=== PATIENT | male | born 1970 | race Caucasian/White ===

== ENCOUNTER → 2017-02-25 | Outpatient (CLI) | payer OTHER ==
--- NOTE | 2017-02-25 19:34 | MR ---
EXAMINATION TYPE: MR shoulder LT wo con DATE OF EXAM: 02/25/2017 COMPARISON: NONE HISTORY: Left Shoulder and Left Arm Pain TECHNIQUE: Multiplanar, multisequence imaging of the left shoulder is performed without contrast. FINDINGS: Rotator Cuff: Rotator cuff tendons are intact with no evidence of tear. Acromioclavicular Joint: Hypertrophic change of the acromioclavicular joint but no evidence of imping ement. Glenohumeral Joint: Joint space preserved. No sizable joint effusion glenohumeral ligaments intact. Labrum: The labrum appears grossly intact given limitation of non-arthrogram study. Biceps Tendon: The long head of biceps is in normal location within bicipital groove. Bone marrow signal: No focal abnormal marrow signal is appreciated. IMPRESSION: Bowel AC joint arthropathy with no evidence of impingement or rotator cuff tear.
== END | disposition home or self-care (01) ==
LOC: RADMRIMAIN 17:54
PROVIDERS: ATTEND Neurological Surgery
DX: M12.812 Other specific arthropathies, not elsewhere classified, left shoulder (principal); M50.120 Mid-cervical disc disorder, unspecified level

== ENCOUNTER 2017-02-28 13:51 | Emergency (ER) | payer OTHER ==
[2017-02-28] MEDS ORDERED: SODIUM CHLORIDE 0.9% 500 ML IV STA (14:55)
[2017-02-28] MEDS ORDERED: RX INFO: IV CONTRAST WAS GIVEN 1 EACH MISC MISCELLANE PRN (14:57)
--- NOTE | 2017-02-28 15:00 | ED ---
General Adult HPI - General Chief complaint: Urogenital Stated complaint: Abd Pain Time Seen by Provider: 02/28/17 14:46 Source: patient, RN notes reviewed Mode of arrival: ambulatory Limitations: no limitations - History of Present Illness Initial comments: 46-year-old male presenting with two-week history of right flank pain and urinary frequency. Denies any trauma or overuse injury. Patient reports that his pain which begins in the right flank and radiates to the groin has been increasing over the past 2 weeks. Pain is constant in nature. Started out mild and has been becoming more severe. Patient reports increased sugar frequency and urgency. Denies any dysuria. No history of urinary tract infections, no history of kidney stones. Patient has past medical history of hypertension. Denies nausea vomiting or diarrhea. States he may be constipated. - Related Data Home Medications Medication Instructions Recorded Confirmed ALPRAZolam [Xanax] 1 mg PO TID PRN 11/22/15 02/28/17 Fluticasone Nasal [place] [Flonase 1 spray EA NOSTRIL DAILY PRN 11/22/15 02/28/17 Nasal [place]] Levothyroxine Sodium [Synthroid] 100 mcg PO DAILY 11/22/15 02/28/17 Loratadine [Claritin] 10 mg PO DAILY PRN 11/22/15 02/28/17 amLODIPine [Norvasc] 10 mg PO DAILY 11/22/15 02/28/17 oxyCODONE-APAP 10-325MG [Percocet 1 tab PO Q4H PRN 11/22/15 02/28/17 10-325 mg] Beclomethasone Dipropionate [Qvar 1 - 2 puff INHALATION RT-BID PRN 11/30/15 80 mcg/puff] Ciprofloxacin HCl [Ciloxan 0.3%] 2 drops RIGHT EYE BID 11/30/15 02/28/17 Multivitamins, Thera [Multivitamin] 1 tab PO DAILY 04/02/16 02/28/17 Ciprofloxacin Ophth Soln [Ciloxan 1 drops LEFT EYE BID 02/28/17 02/28/17 0.3% Ophth Soln] Allergies Allergy/AdvReac Type Severity Reaction Status Date / Time atenolol Allergy dry mouth, Verified 02/28/17 14:57 frequent urination benazepril Allergy Nausea & Verified 02/28/17 14:57 Vomiting & Diarrhea doxycycline Allergy Rash/Hives Verified 02/28/17 14:57 losartan potassium Allergy Nausea & Verified 02/28/17 14:57 [From Cozaar] Vomiting & Diarrhea hydralazine AdvReac "MAY HAVE Verified 02/28/17 14:57 CAUSEA LUPUS" Review of Systems ROS Statement: Those systems with pertinent positive or pertinent negative responses have been documented in the HPI. ROS Other: All systems not noted in ROS Statement are negative. Past Medical History Past Medical History: Chest Pain / Angina, Hypertension, Sleep Apnea/CPAP/BIPAP , Thyroid Disorder Additional Past Medical History / Comment(s): pain L4-L5, States is not taking nitrogylcerin tabs at this time. States does not get chest pain anymore. History of Any Multi-Drug Resistant Organisms: None Reported Past Surgical History: Cholecystectomy, Hernia Repair Additional Past Surgical History / Comment(s): laminectomy. 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 Past Anesthesia/Blood Transfusion Reactions: Postoperative Nausea & Vomiting ( PONV) Past Psychological History: Anxiety Smoking Status: Current every day smoker Past Alcohol Use History: Occasional Past Drug Use History: Marijuana - Past Family History Brother(s) Family Medical History: Memory Impairment Mother Family Medical History: Deep Vein Thrombosis (DVT) General Exam Limitations: no limitations General appearance: alert, in no apparent distress Head exam: Present: atraumatic, normocephalic Eye exam: Present: normal appearance, PERRL ENT exam: Present: normal exam, mucous membranes moist Neck exam: Present: normal inspection. Absent: tenderness, meningismus Respiratory exam: Present: normal lung sounds bilaterally. Absent: respiratory distress Cardiovascular Exam: Present: regular rate, normal rhythm GI/Abdominal exam: Present: soft, tenderness (Mild tenderness to palpation in the right lower quadrant). Absent: distended exam: Present: normal inspection, other (Right orchiectomy). Absent: scrotal swelling Extremities exam: Present: normal inspection, full ROM, normal capillary refill Back exam: Present: normal inspection, full ROM, CVA tenderness (R) Neurological exam: Present: alert, oriented X3 Psychiatric exam: Present: normal affect, normal mood Skin exam: Present: warm, dry. Absent: cyanosis, diaphoretic Course Vital Signs 02/28/17 14:02 Temperature 98.9 F Pulse Rate 89 Respiratory 18 Rate Blood Pressure 134/85 O2 Sat by Pulse 96 Oximetry Medical Decision Making - Medical Decision Making 46-year-old man presenting with chief complaint of urinary frequency and urgency as well as right flank pain. Patient denies any injury. Denies back pain. No changes to his bowels. No penile or scrotal pain. Patient is well- appearing on examination vital signs are stable. There is some tenderness and right flank. Laboratory studies including CBC, CMP and urinalysis are obtained. Urinalysis does show signs of dehydration with 3+ ketones. There is no other abnormality and laboratory studies. When no elevated white blood cell count. CT is obtained and shows no kidney stones or signs of infection. No acute process seen on CT. There is stress reaction and the lamina of L5. Uncertain if this is contributing to the patient's symptoms. The patient does have a primary care physician who is able to follow up with. Diagnosis right flank pain, urinary frequency. uncertain etiology - Lab Data Result diagrams: 02/28/17 15:15 02/28/17 15:15 Lab Results 02/28/17 02/28/17 02/28/17 Range/Units 15:15 15:15 15:15 WBC 8.3 (3.8-10.6) k/uL RBC 5.14 (4.30-5.90) m/uL Hgb 17.1 (13.0-17.5) gm/dL Hct 47.0 (39.0-53.0) % MCV 91.4 (80.0-100.0) fL MCH 33.3 (25.0-35.0) pg MCHC 36.4 (31.0-37.0) g/dL RDW 13.0 (11.5-15.5) % Plt Count 199 (150-450) k/uL Neutrophils % 76 % Lymphocytes % 15 % Monocytes % 6 % Eosinophils % 1 % Basophils % 1 % Neutrophils # 6.3 (1.3-7.7) k/uL Lymphocytes # 1.3 (1.0-4.8) k/uL Monocytes # 0.5 (0-1.0) k/uL Eosinophils # 0.1 (0-0.7) k/uL Basophils # 0.0 (0-0.2) k/uL Sodium 142 (137-145) mmol/L Potassium 4.0 (3.5-5.1) mmol/L Chloride 105 (98-107) mmol/L Carbon Dioxide 22 (22-30) mmol/L Anion Gap 15 mmol/L BUN 13 (9-20) mg/dL Creatinine 1.00 (0.66-1.25) mg/dL Est GFR (MDRD) Af Amer >60 (>60 ml/min/1.73 sqM) Est GFR (MDRD) Non-Af >60 (>60 ml/min/1.73 sqM) Glucose 114 H (74-99) mg/dL Plasma Lactic Acid Zane (0.7-2.0) mmol/L Calcium 9.7 (8.4-10.2) mg/dL Total Bilirubin 0.9 (0.2-1.3) mg/dL AST 40 (17-59) U/L ALT 68 (21-72) U/L Alkaline Phosphatase 68 (38-126) U/L Total Protein 8.0 (6.3-8.2) g/dL Albumin 5.0 (3.5-5.0) g/dL Urine Color Yellow Urine Appearance Clear (Clear) Urine pH 5.5 (5.0-8.0) Ur Specific [place] 1.019 (1.001-1.035) Urine Protein Negative (Negative) Urine Glucose (UA) Negative (Negative) Urine Ketones 3+ H (Negative) Urine Blood Negative (Negative) Urine Nitrite Negative (Negative) Urine Bilirubin Negative (Negative) Urine Urobilinogen <2.0 (<2.0) mg/dL Ur Leukocyte Esterase Negative (Negative) 02/28/17 Range/Units 15:15 WBC (3.8-10.6) k/uL RBC (4.30-5.90) m/uL Hgb (13.0-17.5) gm/dL Hct (39.0-53.0) % MCV (80.0-100.0) fL MCH (25.0-35.0) pg MCHC (31.0-37.0) g/dL RDW (11.5-15.5) % Plt Count (150-450) k/uL Neutrophils % % Lymphocytes % % Monocytes % % Eosinophils % % Basophils % % Neutrophils # (1.3-7.7) k/uL Lymphocytes # (1.0-4.8) k/uL Monocytes # (0-1.0) k/uL Eosinophils # (0-0.7) k/uL Basophils # (0-0.2) k/uL Sodium (137-145) mmol/L Potassium (3.5-5.1) mmol/L Chloride (98-107) mmol/L Carbon Dioxide (22-30) mmol/L Anion Gap mmol/L BUN (9-20) mg/dL Creatinine (0.66-1.25) mg/dL Est GFR (MDRD) Af Amer (>60 ml/min/1.73 sqM) Est GFR (MDRD) Non-Af (>60 ml/min/1.73 sqM) Glucose (74-99) mg/dL Plasma Lactic Acid Zane 0.8 (0.7-2.0) mmol/L Calcium (8.4-10.2) mg/dL Total Bilirubin (0.2-1.3) mg/dL AST (17-59) U/L ALT (21-72) U/L Alkaline Phosphatase (38-126) U/L Total Protein (6.3-8.2) g/dL Albumin (3.5-5.0) g/dL Urine Color Urine Appearance (Clear) Urine pH (5.0-8.0) Ur Specific [place] (1.001-1.035) Urine Protein (Negative) Urine Glucose (UA) (Negative) Urine Ketones (Negative) Urine Blood (Negative) Urine Nitrite (Negative) Urine Bilirubin (Negative) Urine Urobilinogen (<2.0) mg/dL Ur Leukocyte Esterase (Negative) Disposition Clinical Impression: Urinary frequency, Flank pain Disposition: HOME SELF-CARE Condition: Good Instructions: Dysuria (ED), Flank Pain (ED) Additional Instructions: Return to the emergency department with worsening symptoms. Referrals: Sky Wilde MD [Primary Care Provider] - 1-2 days Time of Disposition: 16:13
[2017-02-28 15:31] LABS: Appearance,Urine Clear (Clear); Basophils % (A) 1 %; Bilirubin,Urine Negative (Negative); CH 33.1; CHCM 36.4; Eosinophils # (A) 0.1 k/uL (0-0.7); Eosinophils % (A) 1 %; Glucose,Urine (UA) Negative (Negative); HDW 2.93; HGB 17.1 gm/dL (13.0-17.5); Ketones,Urine 3+ (Negative); Leukocyte Esterase,Urine Negative (Negative); Luc # (Auto) 0.13; Luc % (Auto) 2; Lymphocytes # (A) 1.3 k/uL (1.0-4.8); Lymphocytes % (A) 15 %; MCH 33.3 pg (25.0-35.0); MCHC 36.4 g/dL (31.0-37.0); MCV 91.4 fL (80.0-100.0); Mean Platelet Volume 6.8; Monocytes # (A) 0.5 k/uL (0-1.0); Monocytes % (A) 6 %; Neutrophils # (A) 6.3 k/uL (1.3-7.7); Neutrophils % (A) 76 %; Nitrite,Urine Negative (Negative); PH, Urine 5.5 (5.0-8.0); Protein,Urine Negative (Negative); RBC 5.14 m/uL (4.30-5.90); Specific Gravity,Urine 1.019 (1.001-1.035); UA Billing (MACRO vs. MICRO) CHEM; Urobilinogen,Urine <2.0 mg/dL (<2.0); WBC 8.3 k/uL (3.8-10.6); WBC (Perox) 8.17
[2017-02-28 15:41] LABS: ALT 68 U/L (21-72); AST 40 U/L (17-59); Alkaline Phosphatase 68 U/L (38-126); Anion Gap 15 mmol/L; Blood Urea Nitrogen 13 mg/dL (9-20); Calcium 9.7 mg/dL (8.4-10.2); Carbon Dioxide 22 mmol/L (22-30); Chloride 105 mmol/L (98-107); Glucose 114 mg/dL (74-99); Non-African American GFR(MDRD) >60 (>60 ml/min/1.73 sqM); Sodium 142 mmol/L (137-145); Total Bilirubin 0.9 mg/dL (0.2-1.3)
[2017-02-28] MEDS ORDERED: SODIUM CHLORIDE 0.9% 1,000 ML IV ONE (15:57)
--- NOTE | 2017-02-28 15:59 | CT ---
EXAMINATION TYPE: CT abdomen pelvis w con DATE OF EXAM: 02/28/2017 REFERENCE: NONE HISTORY: Pain HISTORY: Bilateral flank pain with increased frequency of urination REFERENCE: NONE CT DLP: 1530 mGy Automated exposure control for dose reduction was used. TECHNIQUE: Helical acquisition through the abdomen and pelvis was obtained following the oral ingesti on of without Oral Contrast and following intravenous administration of 100 mL of Omnipaque 300. The data was reformatted in axial, coronal and sagittal projections. FINDINGS: Visualized portions of the lungs are clear. There is no pleural or pericardial fluid. The heart is upper limits of normal in size. There is a small hiatal hernia. Within the abdomen, the gallbladder is been removed. The liver is normal in size but fatty infiltrate d. The spleen is upper limits of normal in size at 13 cm. Both adrenal glands are normal. Both kidneys demonstrate function. There is no evidence of nephrolithiasis. No other renal abnormalit y is seen. The pancreas is normal. There is no evidence of significant retroperitoneal, iliac or inguinal adenopathy. The bladder is unremarkable. There is no significant diverticular change and I do not see radiographic evidence of diverticulitis. The appendix is normal. Small bowel loops are normal. There is no evidence of free fluid or free air. There is sclerosis in the lamina at L5, likely representing a stress reaction. There is no spondyloly sis or spondylolisthesis. IMPRESSION: 1. NO EVIDENCE OF NEPHROLITHIASIS OR HYDRONEPHROSIS. 2. NO ACUTE INFLAMMATORY ABNORMALITY. 3. STRESS REACTION IN THE LAMINA OF L5. 4. SMALL HIATAL HERNIA.
[2017-02-28 16:24] VITALS: BP 137/80; PULSE 79; RESP 16; TEMP 97.5
== END 2017-02-28 16:24 | disposition home or self-care (01) ==
LOC: EC 13:51
DX: R35.0 Frequency of micturition (principal); R39.15 Urgency of urination; R10.9 Unspecified abdominal pain; E86.0 Dehydration; I10 Essential (primary) hypertension; E07.9 Disorder of thyroid, unspecified; G47.30 Sleep apnea, unspecified; Z99.89 Dependence on other enabling machines and devices; Z90.49 Acquired absence of other specified parts of digestive tract; Z90.79 Acquired absence of other genital organ(s); F17.200 Nicotine dependence, unspecified, uncomplicated; Z79.899 Other long term (current) drug therapy; Z88.1 Allergy status to other antibiotic agents; Z88.8 Allergy status to other drugs, medicaments and biological substances
CPT/HCPCS: 36415; 80053; 83605; 85025; 81003; 87086; 74177; 99284; 96360; Q9967

== ENCOUNTER → 2017-08-14 | Outpatient (CLI) | payer OTHER ==
--- NOTE | 2017-08-14 22:54 | MR ---
EXAMINATION TYPE: MR knee RT wo con DATE OF EXAM: 08/14/2017 COMPARISON: Prior right knee MRI October 20, 2014. HISTORY: Right Knee pain, Swelling, Locking, x1 year, per patient. Meniscal tear per order. TECHNIQUE: Multiplanar, multisequence images of the knee is performed without IV contrast. FINDINGS: MEDIAL MENISCUS: Anterior horn is intact without tear. Some fraying and increased linear signal poste rior aspect posterior horn of medial meniscus remains present. LATERAL MENISCUS: Anterior and posterior horns are intact without tear. CRUCIATE LIGAMENTS: The anterior and posterior cruciate ligaments are intact and unremarkable. COLLATERAL LIGAMENTS: The medial collateral ligament and lateral collateral ligament complex are inta ct and unremarkable. EXTENSOR MECHANISM: Visualized quadriceps and patellar tendons are intact. EFFUSION: No significant suprapatellar joint effusion. POPLITEAL CYST: No popliteal/parker cyst. TRICOMPARTMENT SPACES: Tricompartment joint spaces are fairly well-maintained. No significant spurrin g is seen. CARTILAGE: Tricompartment articular cartilage is preserved. BONE MARROW SIGNAL: No focal abnormal marrow signal is appreciated. OTHER: No additional significant abnormality is appreciated. IMPRESSION: Fraying intrasubstance tear posterior horn medial meniscus otherwise unremarkable study.
== END | disposition home or self-care (01) ==
LOC: RADMRIMAIN 18:41
PROVIDERS: ATTEND Orthopaedic Surgery
DX: S83.241A Other tear of medial meniscus, current injury, right knee, initial encounter (principal)

== ENCOUNTER → 2017-09-04 | Outpatient (CLI) | payer OTHER ==
[2017-09-04 16:22] LABS: Basophils % (A) 1 %; Eosinophils % (A) 0 %; HCT 48.5 % (39.0-53.0); HGB 17.4 gm/dL (13.0-17.5); Hyperchromasia Slight; Lymphocytes # (A) 1.3 k/uL (1.0-4.8); Lymphocytes % (A) 14 %; MCH 31.1 pg (25.0-35.0); MCHC 35.8 g/dL (31.0-37.0); MCV 86.9 fL (80.0-100.0); Mean Platelet Volume 6.7; Monocytes # (A) 0.5 k/uL (0-1.0); Monocytes % (A) 6 %; Neutrophils # (A) 6.9 k/uL (1.3-7.7); Neutrophils % (A) 78 %; Platelet Count 240 k/uL (150-450); RBC 5.57 m/uL (4.30-5.90); RDW 12.8 % (11.5-15.5); WBC 8.8 k/uL (3.8-10.6)
[2017-09-04 16:40] LABS: ALT 70 U/L (21-72); AST 42 U/L (17-59); Albumin 5.1 g/dL (3.5-5.0); Alkaline Phosphatase 69 U/L (38-126); Anion Gap 15 mmol/L; Blood Urea Nitrogen 15 mg/dL (9-20); Calcium 10.4 mg/dL (8.4-10.2); Carbon Dioxide 28 mmol/L (22-30); Chloride 103 mmol/L (98-107); Cholesterol 181 mg/dL (<200); Glucose 145 mg/dL (74-99); HDL Cholesterol 49 mg/dL (40-60); LDL Cholesterol,Calculated 99 mg/dL (0-99); Potassium 4.3 mmol/L (3.5-5.1); Sodium 146 mmol/L (137-145); Total Bilirubin 0.7 mg/dL (0.2-1.3); Total Protein 8.7 g/dL (6.3-8.2); Triglycerides 164 mg/dL (<150)
[2017-09-04 16:53] LABS: T4, Free (Free Thyroxine) 1.19 ng/dL (0.78-2.19)
[2017-09-05 02:37] LABS: Hemoglobin A1C 5.7 % (4.0-6.0)
[2017-09-05 11:15] LABS: Anti-Endomysial IgA Antibody <1:10 Titer (<1:10)
[2017-09-05 13:38] LABS: Glucose-6-Phosphate Dehydrogen 11.2 U/g Hgb (7.0-20.5)
== END | disposition home or self-care (01) ==
LOC: LABWHC1 15:27
PROVIDERS: ATTEND Family Medicine
DX: E55.9 Vitamin D deficiency, unspecified (principal); E78.5 Hyperlipidemia, unspecified; R53.81 Other malaise; L13.0 Dermatitis herpetiformis; K12.0 Recurrent oral aphthae; L71.8 Other rosacea; Z13.220 Encounter for screening for lipoid disorders
CPT/HCPCS: 36415; 80053; 80061; 82306; 82955; 83036; 83516; 84439; 84443; 85025; 86255

== ENCOUNTER 2017-11-21 12:29 | Day surgery (SDC) | payer OTHER ==
[~2017-11-21 12:29] MED LIST: LACTATED RINGERS 1,000 ML IV SCH; LIDOCAINE 1% 20 ML VIAL (10MG/ML) FOR IV START INTRADERMA PRN
[2017-11-21 12:58] VITALS: TEMP 98.3
[2017-11-21] MEDS ORDERED: LIDOCAINE 1% 20 ML VIAL (10MG/ML) FOR IV START INTRADERMA ONE (13:10)
[2017-11-21] MEDS ORDERED: LIDOCAINE 1% INJ 10MG/ML (20 ML MDV) ONE (13:38)
[2017-11-21] MEDS ORDERED: PROPOFOL 10 MG/ML 20 ML VIAL IV ONE (13:38)
--- NOTE | 2017-11-21 14:11 | P.PCN ---
Date of Procedure: 11/21/17 Procedure(s) Performed: Procedure: 1. Esophagogastroduodenoscopy and biopsy. 2. Colonoscopy and biopsy. Preoperative diagnosis: Gastroesophageal reflux disease, change in bowel habits and blood in stools. Postoperative diagnosis: 1. Small sliding hiatal hernia with no obvious esophagitis or complaints reflux disease. 2. Mild antral gastritis and minimal duodenitis. 3. Low-grade internal hemorrhoids without bleeding at the time of this exam. 4. Biopsies obtained from the duodenum, antrum, esophagus and right colon. Preparation: HalfLytely prep. Sedation: Was provided by anesthesia. Brief clinical history: The patient is a 47-year-old male who was scheduled for this evaluation because of chronic reflux symptoms for which he takes Tums and intermittent diarrhea as well as finding of blood in his stools. No other alarm symptoms. Procedure: With the patient on his left lateral decubitus position and after informed consent and adequate sedation, I passed the Olympus-GIF 160 video upper endoscope through the cricopharyngeus down the esophagus. GE junction was around 39 cm from the incisors and there was a small sliding hiatal hernia but no obvious esophagitis or complicated reflux disease. The endoscope was then passed into the stomach which was insufflated with air and inspected in detail including the retroflex view in the cardia. There was some mottling and erythema in the antrum but no ulcers or erosions. Pyloric channel, duodenal bulb, post bulbar area and descending duodenum showed minimal erythema. I obtained biopsies from the duodenum, antrum and esophagus then the endoscope was withdrawn and I proceeded with the colonoscopy. Perianal area did not show any fissures or fistulas. There were no masses felt on digital rectal examination. The Olympus CFQ 160L video colonoscope was then inserted in the rectum in the usual fashion and advanced to the cecum. The mucosa appeared healthy. No polyps or tumors were seen or any obvious diverticular disease. Low-grade internal hemorrhoids were noted with no evidence of bleeding. I obtained biopsies from the right colon because of the diarrhea before the endoscope was withdrawn. The patient tolerated the procedure well. Plan: The patient was reassured. Will await biopsy results. Discussed dietary measures and local care for hemorrhoids. He will follow-up in the office as planned and we would keep you updated on his progress.
[2017-11-21 14:13] VITALS: RESP 18
[2017-11-21 14:42] VITALS: BP 143/91; PULSE 66
--- NOTE | 2017-11-26 13:41 | CDI ---
Outpatient Documentation Clarification Form Date: 11/26/17 CDS/Fiberglass Insulation Installer Name: Alejandra Rizzo Phone: If any questions, call Miryam [place] Lithographic Proofer Apprentice at [phone] Patient Name: Cleveland Bardales Admit Date: 11/21/17 Discharge Date: 11/21/17 ATTENTION: The [facility] Coding Staff appreciate your assistance in clarifying documentation. Please respond to the clarification below the line at the bottom and electronically sign. The [facility] Coding staff will review the response and follow-up if needed. Please note: Queries are made part of the Legal Health Record. If you have any questions, please contact the Lithographic Proofer Apprentice. Dear Dr. Rao, What is the cause of the blood in stool? Examples include due to internal hemorrhoids, gastritis, incidental finding, etc. Thank you for your kind consideration. Unknown MTDD
== END 2017-11-21 15:20 | disposition home or self-care (01) ==
LOC: ORWHC2ENDO 12:29
DX: K29.50 Unspecified chronic gastritis without bleeding (principal); K21.0 Gastro-esophageal reflux disease with esophagitis; K29.80 Duodenitis without bleeding; K44.9 Diaphragmatic hernia without obstruction or gangrene; K92.1 Melena; K64.8 Other hemorrhoids; G47.33 Obstructive sleep apnea (adult) (pediatric); I10 Essential (primary) hypertension; E07.9 Disorder of thyroid, unspecified; Z79.891 Long term (current) use of opiate analgesic; Z79.51 Long term (current) use of inhaled steroids; Z79.899 Other long term (current) drug therapy; Z79.890 Hormone replacement therapy; Z87.891 Personal history of nicotine dependence; Z88.1 Allergy status to other antibiotic agents; Z88.8 Allergy status to other drugs, medicaments and biological substances
CPT/HCPCS: 88305; 45380; 43239; J2001; J2704

== ENCOUNTER → 2019-12-23 | Outpatient (CLI) | payer MEDICARE, OTHER ==
--- NOTE | 2019-12-23 23:20 | CONS ---
CONSULTATION DATE OF SERVICE: 12/23/2019 This patient is a 49-year-old gentleman who has been evaluated in the sleep center for obstructive sleep apnea-hypopnea syndrome. Patient has been diagnosed with obstructive sleep apnea around 2011 in another institution. Since that time, he is on treatment with CPAP. I checked his CPAP unit. CPAP pressure is 9 cm of water. According to the patient, he is using equipment every night. Last night, he used it for 9 hours. Usual sleep schedule from 11 p.m. until 8 or 10 a.m. Sometimes he has problems with falling asleep, has TV in bedroom. He sleeps on the back position. He wakes up from sleep 3 times with 3 episodes of nocturia but he explained that his awakenings does not remember due to the breathing. He described it secondary to pain in the body. [place] Sleepiness Scale is 3. PAST MEDICAL HISTORY: Positive for hypertension, hypothyroidism, acid reflux, asthma. PAST SURGICAL HISTORY: Adenoidectomy, cholecystectomy, right knee arthroscopic surgery. MEDICATIONS: , Percocet, Xanax, amlodipine, Synthroid, ciprofloxacin, Pepcid. SOCIAL HISTORY: Positive for smoking in the past 1 pack for 25 years, quit 2 years ago. REVIEW OF SYSTEMS: Awakenings from sleep. PHYSICAL EXAMINATION: GENERAL: A gentleman without distress. VITAL SIGNS: BP 141/87, HR 86, RR 16, height 5 feet 8 inches, weight 180, body mass index 28.5, temperature 98.0, oxygen saturation on room air 97%. Neck is 17-1/2 inches in circumference. HEENT: PERRLA, EOMI, evaluation of oropharynx showed tongue protrudes midline. NECK: Supple, no JVD. Thyroid is not palpable. LUNGS: Clear to percussion and to auscultation. Good air exchange. No wheezing or rhonchi. HEART: S1, S2 regular. No murmurs, gallops, or rubs. ABDOMEN: Soft and nontender. Bowel sounds are present. No organomegaly appreciated. EXTREMITIES: No clubbing or cyanosis. FORGING ENGINEER: Awake, alert, and oriented X3. Cranial nerves 2 to 7 intact. There is no fasciculation or atrophy. noted. No focal deficits observed. IMPRESSION: 1. Obstructive sleep apnea-hypopnea syndrome since 2011. Patient is on treatment with CPAP. Continue to use CPAP equipment every night for the whole night, but still wakes up from sleep. 2. Overweight. 3. Hypertension. 4. Hypothyroidism. 5. Acid reflux. 6. History of asthma. 7. Status post right knee arthroscopic surgery. 8. Status post cholecystectomy. 9. Status post adenoidectomy. 10.Status post L4-L5 laminectomy. PLAN: 1. Patient will continue to use CPAP equipment every night for the whole night. 2. Watching weight. 3. Sleep hygiene with regular time in bed for at least 7-1/2 to 8 hours. 4. Prescription for new CPAP supplies. 5. Follow-up visit in 45 days to evaluate clinical response and treatment, compliance with treatment and to read apnea-hypopnea index from his new CPAP unit. I would use the same pressure for the CPAP machine as he has now 9 cm of water. Thank you very much for allowing me to participate in management of your patient. Sincerely, Bhavin Nelson MD, PhD, FAASM Diplomat of [place] [employer] [place] [employer] Building Inspector of [facility] [place] MMODL / HUSSAINN: [id number] /
== END | disposition home or self-care (01) ==
LOC: SLEEP 14:54
PROVIDERS: ATTEND Internal Medicine
DX: G47.33 Obstructive sleep apnea (adult) (pediatric) (principal); E66.3 Overweight; I10 Essential (primary) hypertension; E03.9 Hypothyroidism, unspecified; K21.9 Gastro-esophageal reflux disease without esophagitis; Z87.09 Personal history of other diseases of the respiratory system; Z99.89 Dependence on other enabling machines and devices; Z98.890 Other specified postprocedural states; Z90.49 Acquired absence of other specified parts of digestive tract; Z90.89 Acquired absence of other organs; Z68.28 Body mass index [BMI] 28.0-28.9, adult; Z87.891 Personal history of nicotine dependence; Z79.891 Long term (current) use of opiate analgesic; Z79.890 Hormone replacement therapy; Z79.2 Long term (current) use of antibiotics; Z79.899 Other long term (current) drug therapy
CPT/HCPCS: 99211

== ENCOUNTER → 2021-06-22 | Outpatient (CLI) | payer MEDICARE, OTHER ==
--- NOTE | 2021-06-22 21:07 | SFUN ---
SLEEP CENTER FOLLOW UP NOTE DATE OF SERVICE: 06/22/2021 50-year-old gentleman has been followed in Sleep Center for treatment of obstructive sleep apnea-hypopnea syndrome. Last time I saw him 1-1/2 year ago. He continues to use his CPAP equipment every night for the whole night. No snoring with the machine. [place] Sleepiness Scale today is 4. I checked his CPAP unit. Pressure is 9 cm of water. Usage is 30/30 nights and 24/30 nights for more than 4 hours, average 7.9 hours per night. Leak is 1 L/minute. Apnea- hypopnea index is 0.5 which is normal. The patient preferred to have high pressure in his machine. He thinks that pressure is sometimes not enough for him. He does not use any ramp. MEDICATIONS: Percocet, Xanax, ciprofloxacin eye drops, Prilosec. PHYSICAL EXAM: Patient in no distress. BP 165/97, HR 68, height 5 feet 7.5 inches, weight 187.8 pounds, temperature 97.3, oxygen saturation at room air 98%. Oropharynx: Short distance between soft palate. NECK: 17.5 inches in circumflex. Supple, no JVD. Thyroid is not palpable. LUNGS: Clear to percussion and to auscultation. Good air exchange. No wheezing or rhonchi. HEART: S1, S2 regular. No murmurs, gallops, or rubs. ABDOMEN: Soft and nontender. Bowel sounds are present. No organomegaly appreciated. EXTREMITIES: No clubbing or cyanosis. COOK ICE CREAM: Awake, alert, and oriented X3. Cranial nerves 2 to 7 intact. There is no fasciculation or atrophy. noted. No focal deficits observed. IMPRESSION: 1. Obstructive sleep apnea-hypopnea syndrome patient demonstrated close to 100% compliance with treatment benefitting from treatment. 2. Hypertension. 3. History of hypothyroidism. 4. Acid reflux. 5. History of asthma. 6. Status post right knee arthroscopic surgery. 7. Status post cholecystectomy. 8. Status post adenoidectomy. 9. Status post L4-L5 laminectomy. PLAN: 1. I increased the pressure in the machine on 1 cm of water to 10.6 cm. 2. Patient will continue to use PAP equipment every night for the whole night. 3. Sleep hygiene with regular time in bed for at least 7-1/2 to 8 hours. 4. Precautions related to driving. No driving if feeling sleepiness. 5. I will maintain all necessary prescription for PAP supplies including mask, tube, filters. 6. Watching weight. 7. Follow-up visit in 6 months or earlier if patient has any problems. Thank you very much for allowing me to participate in the management of your patient. Sincerely, Bhavin Nelson MD, PhD, FAASM Diplomat of [place] [employer] Sleep Medicine Board of [place] [employer] Technical Supervisor of [facility] [place] MMODL / HUSSAINN: [id number] /
== END ==
LOC: SLEEP 16:22
PROVIDERS: ATTEND Internal Medicine
DX: G47.33 Obstructive sleep apnea (adult) (pediatric) (principal); I10 Essential (primary) hypertension; K21.9 Gastro-esophageal reflux disease without esophagitis; J45.909 Unspecified asthma, uncomplicated; M96.1 Postlaminectomy syndrome, not elsewhere classified; Z98.890 Other specified postprocedural states; Z90.49 Acquired absence of other specified parts of digestive tract; Z90.09 Acquired absence of other part of head and neck; Z86.39 Personal history of other endocrine, nutritional and metabolic disease; Z99.89 Dependence on other enabling machines and devices; Z88.5 Allergy status to narcotic agent; Z88.1 Allergy status to other antibiotic agents; Z88.8 Allergy status to other drugs, medicaments and biological substances; Z87.891 Personal history of nicotine dependence

== ENCOUNTER → 2021-12-28 | Outpatient (CLI) | payer MEDICARE, OTHER ==
--- NOTE | 2021-12-28 15:19 | P.PN ---
Subjective DATE: 12/28/2021 FOLLOW UP VISIT. Patient with obstructive sleep apnea hypopnea syndrome return to sleep center for follow-up visit. Patient is using PAP equipment every night for the whole night, getting PAP supplies in time. The patient does not have significant problems with the mask, PAP unit and humidification. [place] sleepiness scale is 3. I checked information from PAP unit. PAP unit pressure 10.6 cm H2O. Usage is 95 % for more then 4 hours, average 8.3 hours per night. Leak is 0 l/m, which is perfect. Apnea Hypopnea Index is 0.2, which is normal. MEDICATIONS:1. Synthroid 100 g once a day 2. Percocet 3. Metformin twice a day 4. Amlodipine 10 mg once a day During physical exam: GENERAL: A pleasant patient without any distress. VITAL SIGNS: BP 136/79, HR 70, RR 16 , weight 185.6, height 5 foot 8 inches, body mass index 28.1, temperature 97.6, oxygen saturation at room air 98% . HEENT: PERRLA, EOMI[] . NECK: Supple. No JVD. LUNGS: Clear to percussion and to auscultation. Good air exchange. No wheezing or rhonchi. HEART: S1, S2 regular. ABDOMEN: Soft and nontender.[] EXTREMITIES: No clubbing or cyanosis. SENIOR MANUFACTURING TECHNICIAN: Awake, alert, and oriented x3. No focal deficit. Impressions: 1. Obstructive sleep apnea-hypopnea syndrome. Patient demonstrated great compliance with treatment, benefiting from treatment. 2. Hypertension. 3. Hypothyroidism. 4. Acid reflux. 5. History of asthma. 6. Status post cholecystectomy. 7. Status post right knee arthroscopic surgery. 8. Status post adenoid ectomy. 9. Status post L4-L5 laminectomy. Plan: 1. Continue using PAP equipment every night for the whole night. 2. To change air filter at least 1-2 times per month. 3. PAP unit should stay lower then position of the head. 4. Advised patient to remove all remaining water from humidifier canister daily and make it dry after each usage. Refill canister with fresh distilled water before each usage. 5. Sleep hygiene with regular time in bed for at least 8 hours. 6. Precautions related to driving. No driving if feel any sleepiness. 7. I will maintain prescription for PAP supplies including mask, tube, filters. 8. Follow up visit in 6 months or earlier if patient has any problems. 9. Watching weight. Thank you very much for allowing me to participate in the management of your patient. Bhavin Nelson MD, PhD, FAASM. Diplomat of [place] [employer], Sleep Medicine Board by [place] [employer] [facility] [place]
== END ==
LOC: SLEEP 14:13
PROVIDERS: ATTEND Internal Medicine
DX: G47.30 Sleep apnea, unspecified (principal); I10 Essential (primary) hypertension; E03.9 Hypothyroidism, unspecified; K21.9 Gastro-esophageal reflux disease without esophagitis; J45.909 Unspecified asthma, uncomplicated; Z90.49 Acquired absence of other specified parts of digestive tract; Z98.890 Other specified postprocedural states; Z90.09 Acquired absence of other part of head and neck; Z99.89 Dependence on other enabling machines and devices; Z79.890 Hormone replacement therapy; Z79.899 Other long term (current) drug therapy; Z88.1 Allergy status to other antibiotic agents; Z88.8 Allergy status to other drugs, medicaments and biological substances

== ENCOUNTER 2022-06-15 07:19 | Emergency (ER) | payer MEDICARE, OTHER ==
[2022-06-15 07:28] VITALS: RESP 18; TEMP 98.2
[2022-06-15] MEDS ORDERED: HYDROmorphone 1 MG/ML 1 ML SYRINGE IVP STA ×2 (07:35→08:54)
--- NOTE | 2022-06-15 07:39 | ED ---
General Adult HPI - General Chief complaint: Fall Stated complaint: Back Pain Time Seen by Provider: 06/15/22 07:21 Source: EMS, RN notes reviewed Mode of arrival: EMS Limitations: no limitations - History of Present Illness Initial comments: 51 year old cauacasian male with a past medical history of chronic back pain presents to the emergency department via EMS for a fall. Johanna was going down the stairs last night and missed 1 step and fell onto his back. This morning he notes that his pain has increased. He is complaining of accompanying right leg pain that radiates down. He denies hitting his head, loss of consciousness, any anticoagulant use. He denies any recent fevers, Numbness, tingling, saddle paresthesia, loss of bowel or bladder function. He was given fentanyl and Toradol and Zofran IV in route to the hospital. - Related Data Home Medications Medication Instructions Recorded Confirmed ALPRAZolam [Xanax] 1 mg PO TID PRN 11/22/15 11/21/17 Levothyroxine Sodium [Synthroid] 100 mcg PO QAM 11/22/15 11/21/17 amLODIPine [Norvasc] 10 mg PO HS 11/22/15 11/21/17 oxyCODONE-APAP 10-325MG [Percocet 1 tab PO Q4H PRN 11/22/15 11/21/17 10-325 mg] Ciprofloxacin Ophth Soln [Ciloxan 1 drops LEFT EYE BID 02/28/17 11/21/17 0.3% Ophth Soln] Albuterol Nebulized [Ventolin 2.5 mg INHALATION RT-QID PRN 06/15/22 06/15/22 Nebulized] Ergocalciferol [Vitamin D2 (1250 1,250 mcg PO Q30D 06/15/22 06/15/22 Mcg = 24263 Iu)] Etodolac [Lodine] 400 mg PO BID PRN 06/15/22 06/15/22 Hydrocortisone Cream 1 applic TOPICAL HS PRN 06/15/22 06/15/22 [Hydrocortisone 2.5% Cream] Ketoconazole 2% Cream [Nizoral 2%] 1 applic TOPICAL HS PRN 06/15/22 06/15/22 Omeprazole [PriLOSEC] 20 mg PO BID 06/15/22 06/15/22 metFORMIN HCL [Glucophage] 250 mg PO BID PRN 06/15/22 06/15/22 Allergies Allergy/AdvReac Type Severity Reaction Status Date / Time atenolol Allergy dry mouth, Verified 11/21/17 12:53 frequent urination benazepril Allergy Nausea & Verified 11/21/17 12:53 Vomiting & Diarrhea doxycycline Allergy Rash/Hives Verified 11/21/17 12:53 losartan potassium Allergy Nausea & Verified 11/21/17 12:53 [From Cozaar] Vomiting & Diarrhea hydralazine AdvReac "MAY HAVE Verified 11/21/17 12:53 CAUSEA LUPUS" Review of Systems ROS Statement: Those systems with pertinent positive or pertinent negative responses have been documented in the HPI. ROS Other: All systems not noted in ROS Statement are negative. Past Medical History Past Medical History: Chest Pain / Angina, Eye Disorder, Hypertension, Sleep Apnea/CPAP/BIPAP, Thyroid Disorder Additional Past Medical History / Comment(s): CURRENT: ABD PAIN. Pain L4-L5. USES CPAP. HAS AN EYE DISORDER, WHERE EYES GET INFECTED/CRUSTY (COULDN'T REMEMBER NAME OF CONDITION). History of Any Multi-Drug Resistant Organisms: None Reported Past Surgical History: Cholecystectomy, Hernia Repair Additional Past Surgical History / Comment(s): laminectomy LUMBAR & CERVICAL. 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 Past Anesthesia/Blood Transfusion Reactions: Motion Sickness, Postoperative Nausea & Vomiting (PONV) Past Psychological History: Anxiety Smoking Status: Unknown if ever smoked Past Alcohol Use History: Occasional Past Drug Use History: Marijuana - Past Family History Brother(s) Family Medical History: Memory Impairment Mother Family Medical History: Deep Vein Thrombosis (DVT) General Exam Limitations: no limitations General appearance: alert, in no apparent distress Head exam: Present: atraumatic, normocephalic, normal inspection Eye exam: Present: normal appearance, PERRL, EOMI. Absent: scleral icterus, conjunctival injection, periorbital swelling ENT exam: Present: normal exam, normal oropharynx, mucous membranes moist Neck exam: Present: normal inspection. Absent: tenderness, meningismus, lymphadenopathy Respiratory exam: Present: normal lung sounds bilaterally. Absent: respiratory distress, wheezes, rales, rhonchi, stridor Cardiovascular Exam: Present: normal rhythm, tachycardia, normal heart sounds GI/Abdominal exam: Present: soft, normal bowel sounds. Absent: distended, tenderness, guarding, rebound, rigid Extremities exam: Present: normal capillary refill. Absent: normal inspection (R leg shortened and abducted), full ROM (R hip tenderness to palpation, with limited ROM secondary to pain. NVI, 2+ DT/PT pulses bilaterally), tenderness, pedal edema, joint swelling, calf tenderness Back exam: Present: normal inspection, tenderness (to palpation, lumbar spine near L4/L5 region), paraspinal tenderness. Absent: full ROM (limited secondary to pain ), vertebral tenderness (No step off ) Neurological exam: Present: alert, oriented X3, CN II-XII intact Psychiatric exam: Present: normal affect, normal mood Skin exam: Present: warm, dry, intact, normal color. Absent: rash Course Vital Signs 06/15/22 06/15/22 07:20 09:13 Temperature 98.2 F Pulse Rate 109 H 111 H Respiratory 18 18 Rate Blood Pressure 179/101 148/92 O2 Sat by Pulse 99 96 Oximetry - Reevaluation(s) Reevaluation #1: 06/15/22 08:38 X-ray called with critical results: Right femur neck fracture 06/15/22 08:38 Reevaluation #2: 06/15/22 09:[address] Early, orthopedist technical sales consultant who requests patient to be transferred to [facility] for continuation of care as he does not think patient will be given an OR room at this facility. 06/15/22 10:38 Reevaluation #3: 06/15/22 10:33: Consultated Rickey Hugo PA-C technical sales consultant for [facility] to board patient case at this facility. Dr. Dumont, attending does not think an OR room would be available today and case should be boarded at [facility] Reevaluation #4: 06/15/22 11:[address] Maza, Orthopedists on-call at [facility] who agrees and accepts patient for transfer. EKG Findings - EKG Comments: EKG Findings:: I interpreted the following: EKG performed at 09:04. Rate 112 bpm, sinus tachycardia. DC interval 139, QRS 82, QT/QTc 318/384 Medical Decision Making - Medical Decision Making 51-year-old male is unchanged emergency department today after a fall. Patient was seen and evaluated in the emergency department, work and imaging were ordered. I interpreted the following: X-ray of lumbar and pelvis negative for right femoral neck fracture. Lab work unremarkable. I discussed in detail the results with the patient, patient verbalized understanding all questions addressed . He is agreeable for plan for transfer to [facility] for continuation of care. - Lab Data Result diagrams: 06/15/22 08:39 06/15/22 08:39 Lab Results 06/15/22 06/15/22 06/15/22 Range/Units 08:39 08:39 08:39 WBC 8.5 (3.8-10.6) k/uL RBC 4.64 (4.30-5.90) m/uL Hgb 15.4 (13.0-17.5) gm/dL Hct 42.1 (39.0-53.0) % MCV 90.7 (80.0-100.0) fL MCH 33.3 (25.0-35.0) pg MCHC 36.7 (31.0-37.0) g/dL RDW 12.1 (11.5-15.5) % Plt Count 192 (150-450) k/uL MPV 7.8 Neutrophils % 78 % Lymphocytes % 11 % Monocytes % 10 % Eosinophils % 0 % Basophils % 0 % Neutrophils # 6.6 (1.3-7.7) k/uL Lymphocytes # 0.9 L (1.0-4.8) k/uL Monocytes # 0.8 (0-1.0) k/uL Eosinophils # 0.0 (0-0.7) k/uL Basophils # 0.0 (0-0.2) k/uL APTT 24.1 (22.0-30.0) sec Sodium 137 (137-145) mmol/L Potassium 4.0 (3.5-5.1) mmol/L Chloride 103 (98-107) mmol/L Carbon Dioxide 23 (22-30) mmol/L Anion Gap 11 mmol/L BUN 18 (9-20) mg/dL Creatinine 0.77 (0.66-1.25) mg/dL Est GFR (CKD-EPI)AfAm >90 (>60 ml/min/1.73 sqM) Est GFR (CKD-EPI)NonAf >90 (>60 ml/min/1.73 sqM) Glucose 191 H (74-99) mg/dL Calcium 8.6 (8.4-10.2) mg/dL Total Bilirubin 2.0 H (0.2-1.3) mg/dL AST 77 H (17-59) U/L ALT 89 H (4-49) U/L Alkaline Phosphatase 62 (38-126) U/L Troponin I (0.000-0.034) ng/mL Total Protein 7.5 (6.3-8.2) g/dL Albumin 4.5 (3.5-5.0) g/dL 06/15/22 Range/Units 08:39 WBC (3.8-10.6) k/uL RBC (4.30-5.90) m/uL Hgb (13.0-17.5) gm/dL Hct (39.0-53.0) % MCV (80.0-100.0) fL MCH (25.0-35.0) pg MCHC (31.0-37.0) g/dL RDW (11.5-15.5) % Plt Count (150-450) k/uL MPV Neutrophils % % Lymphocytes % % Monocytes % % Eosinophils % % Basophils % % Neutrophils # (1.3-7.7) k/uL Lymphocytes # (1.0-4.8) k/uL Monocytes # (0-1.0) k/uL Eosinophils # (0-0.7) k/uL Basophils # (0-0.2) k/uL APTT (22.0-30.0) sec Sodium (137-145) mmol/L Potassium (3.5-5.1) mmol/L Chloride (98-107) mmol/L Carbon Dioxide (22-30) mmol/L Anion Gap mmol/L BUN (9-20) mg/dL Creatinine (0.66-1.25) mg/dL Est GFR (CKD-EPI)AfAm (>60 ml/min/1.73 sqM) Est GFR (CKD-EPI)NonAf (>60 ml/min/1.73 sqM) Glucose (74-99) mg/dL Calcium (8.4-10.2) mg/dL Total Bilirubin (0.2-1.3) mg/dL AST (17-59) U/L ALT (4-49) U/L Alkaline Phosphatase (38-126) U/L Troponin I <0.012 (0.000-0.034) ng/mL Total Protein (6.3-8.2) g/dL Albumin (3.5-5.0) g/dL Disposition Clinical Impression: Fall, Femur neck fracture Disposition: ADMITTED IP TO THIS HOSP Condition: Fair Is patient prescribed a controlled substance at d/c from ED?: No Referrals: Sky Wilde MD [Primary Care Provider] - 1-2 days Time of Disposition: 08:41
--- NOTE | 2022-06-15 08:56 | XR ---
EXAMINATION TYPE: XR Hip Bilateral and AP pelvis DATE OF EXAM: 06/15/2022 COMPARISON: CT abdomen pelvis 2017 HISTORY: Following injury with pelvic and bilateral hip pain. TECHNIQUE: A single AP view of the pelvis is obtained. Two views of the bilateral hips are obtained. FINDINGS: There is acute impacted basicervical fracture of the right proximal femur. No hip joint dis location is seen. Pubic symphysis is intact. Sacroiliac joints are preserved. Left-sided pelvic phleb olith incidentally noted. No acute displaced fracture in the left hip is seen. IMPRESSION: There is acute impacted displaced basilar cervical fracture of the femoral neck of the r ight hip.
[2022-06-15] MEDS ORDERED: NALOXONE 0.4 MG/ML 1 ML VIAL IV PRN (08:59)
[2022-06-15] MEDS ORDERED: ONDANSETRON 4 MG/2 ML VIAL IVP PRN (08:59)
[2022-06-15] MEDS ORDERED: HYDROmorphone 1 MG/ML 1 ML SYRINGE IVP PRN (08:59)
--- NOTE | 2022-06-15 08:59 | XR ---
EXAMINATION TYPE: XR chest 1V DATE OF EXAM: 06/15/2022 COMPARISON: Chest x-ray November 22, 2015 HISTORY: Trauma injury with pain TECHNIQUE: Single frontal view of the chest is obtained. FINDINGS: There is no suspicious focal air space opacity, pleural effusion, or pneumothorax seen. T he cardiac silhouette size is stable and within normal limits. The osseous structures are intact. IMPRESSION: No acute process. No significant change from prior.
[2022-06-15] MEDS ORDERED: SODIUM CHLORIDE 0.9% 1,000 ML IV SCH (09:00)
--- NOTE | 2022-06-15 09:00 | XR ---
EXAMINATION TYPE: XR lumbar spine 2 or 3V DATE OF EXAM: 06/15/2022 CLINICAL HISTORY: Pain after trauma injury. TECHNIQUE: Frontal and lateral images of the lumbar spine are obtained. COMPARISON: None FINDINGS: There are 5 lumbar type vertebral bodies identified presuming hypoplastic bilateral T12 ri bs. The lumbar spine shows stable and satisfactory alignment without evidence of acute fracture or d islocation. Vertebral body heights and disk space heights are within normal limits. Cholecystectomy c lips are noted in the overlying soft tissue. IMPRESSION: No acute fracture or dislocation is seen in the lumbar spine.
[2022-06-15 09:01] LABS: Basophils % (A) 0 %; Eosinophils % (A) 0 %; HCT 42.1 % (39.0-53.0); HGB 15.4 gm/dL (13.0-17.5); Lymphocytes # (A) 0.9 k/uL (1.0-4.8); Lymphocytes % (A) 11 %; MCH 33.3 pg (25.0-35.0); MCHC 36.7 g/dL (31.0-37.0); MCV 90.7 fL (80.0-100.0); Mean Platelet Volume 7.8; Monocytes # (A) 0.8 k/uL (0-1.0); Monocytes % (A) 10 %; Neutrophils # (A) 6.6 k/uL (1.3-7.7); Neutrophils % (A) 78 %; Platelet Count 192 k/uL (150-450); RBC 4.64 m/uL (4.30-5.90); RDW 12.1 % (11.5-15.5); WBC 8.5 k/uL (3.8-10.6)
[2022-06-15 09:14] VITALS: BP 148/92; PULSE 111
[2022-06-15 09:16] LABS: ALT 89 U/L (4-49); AST 77 U/L (17-59); African American GFR (CKD) >90 (>60 ml/min/1.73 sqM); Albumin 4.5 g/dL (3.5-5.0); Alkaline Phosphatase 62 U/L (38-126); Anion Gap 11 mmol/L; Blood Urea Nitrogen 18 mg/dL (9-20); Calcium 8.6 mg/dL (8.4-10.2); Carbon Dioxide 23 mmol/L (22-30); Chloride 103 mmol/L (98-107); Glucose 191 mg/dL (74-99); Non-African American GFR(CKD) >90 (>60 ml/min/1.73 sqM); Sodium 137 mmol/L (137-145); Total Protein 7.5 g/dL (6.3-8.2)
== END 2022-06-15 11:45 | disposition other institution (70) ==
LOC: EC 07:19 → 5NMEDONC 09:08 → UNDOADMIN 09:08 → EC 11:45
DX: S72.001A Fracture of unspecified part of neck of right femur, initial encounter for closed fracture (principal); I10 Essential (primary) hypertension; F12.90 Cannabis use, unspecified, uncomplicated; F41.9 Anxiety disorder, unspecified; E07.9 Disorder of thyroid, unspecified; Z90.49 Acquired absence of other specified parts of digestive tract; Z79.899 Other long term (current) drug therapy; Z88.1 Allergy status to other antibiotic agents; Z88.8 Allergy status to other drugs, medicaments and biological substances; Z79.890 Hormone replacement therapy; W10.9XXA Fall (on) (from) unspecified stairs and steps, initial encounter
CPT/HCPCS: 99285 ×2; 96374 ×2; 96376 ×2; 96361 ×2; 36415; 93005; 80053; 84484; 85025; 85730; 72100; 73521; 71045; J1170

== ENCOUNTER → 2022-07-25 | Outpatient (CLI) | payer MEDICARE, OTHER ==
--- NOTE | 2022-07-25 15:17 | P.PN ---
Subjective DATE: 07/25/2022 FOLLOW UP VISIT. Patient with obstructive sleep apnea hypopnea syndrome return to sleep center for follow-up visit. Information from previous visit have been reviewed. Patient is using PAP equipment every night for the whole night, getting PAP supplies in time. The patient does not have significant problems with the mask, PAP unit and humidification. [place] sleepiness scale is 4, which is normal. I checked information from PAP unit. PAP unit pressure 10.6 cm H2O. Usage is 100 % for more then 4 hours, average 8.5 hours per night. Leak is 0 l/m, which is perfect. Apnea Hypopnea Index is 0.1, which is normal. MEDICATIONS:1. Synthroid 100 g once a day 2. Amlodipine 10 mg once a day 3. Metformin 500 mg twice a day 4. Prilosec 20 mg twice a day 5.. Percocet 10 mg 4 times a day During physical exam: GENERAL: A pleasant patient without any distress. VITAL SIGNS: BP 148/84, HR 83, RR 12, weight 186.6, body mass index 28.7, temperature 98.3, oxygen saturation at room air 99 % . HEENT: PERRLA, EOMI.low position of soft palate . NECK: Supple. No JVD. LUNGS: Clear to percussion and to auscultation. Good air exchange. No wheezing or rhonchi. HEART: S1, S2 regular. ABDOMEN: Soft and nontender.[] EXTREMITIES: No clubbing or cyanosis. CONFERENCE INTERPRETER: Awake, alert, and oriented x3. No focal deficit. Impressions: 1. Obstructive sleep apnea-hypopnea syndrome. Patient demonstrated great compliance with treatment, benefiting from treatment. 2. Hypothyroidism. 3. Hypertension. 4. History of asthma. 5. Acid reflux. 6. Status post cholecystectomy. 7. Status post a right knee arthroscopic surgery. 8. Status post adenoidectomy. 9. Status post L4-L5 laminectomy. Plan: 1. Continue using PAP equipment every night for the whole night. 2. To change air filter at least 1-2 times per month. 3. PAP unit should stay lower then position of the head. 4. Advised patient to remove all remaining water from humidifier canister daily and make it dry after each usage. Refill canister with fresh distilled water before each usage. 5. Sleep hygiene with regular time in bed for at least 8 hours. 6. Precautions related to driving. No driving if feel any sleepiness. 7. I will maintain prescription for PAP supplies including mask, tube, filters. 8. Watching weight. 9. Follow up visit in 6 months or earlier if patient has any problems. Thank you very much for allowing me to participate in the management of your patient. Bhavin Nelson MD, PhD, FAASM. Diplomat of [place] [employer], Sleep Medicine Board by [place] [employer] of [facility] [place]
== END ==
LOC: SLEEP 14:53
PROVIDERS: ATTEND Internal Medicine
DX: G47.33 Obstructive sleep apnea (adult) (pediatric) (principal); Z99.89 Dependence on other enabling machines and devices; K21.9 Gastro-esophageal reflux disease without esophagitis; E03.9 Hypothyroidism, unspecified; I10 Essential (primary) hypertension; Z98.890 Other specified postprocedural states; Z87.09 Personal history of other diseases of the respiratory system; K91.5 Postcholecystectomy syndrome; Z90.49 Acquired absence of other specified parts of digestive tract; Z90.89 Acquired absence of other organs; Z79.890 Hormone replacement therapy; Z79.899 Other long term (current) drug therapy
CPT/HCPCS: 99212

== ENCOUNTER → 2022-10-30 | Outpatient (CLI) | payer MEDICARE, OTHER ==
--- NOTE | 2022-10-30 19:52 | MR ---
EXAMINATION TYPE: MR knee RT wo con DATE OF EXAM: 10/30/2022 COMPARISON: Prior MRI August 14, 2017 HISTORY: Right knee pain, swelling, and limited range of motion. History of surgery. TECHNIQUE: Multiplanar, multisequence images of the knee is performed without IV contrast. FINDINGS: MEDIAL MENISCUS: Some irregularity and increased signal posterior horn medial meniscus has similar ap pearance to prior study. LATERAL MENISCUS: Anterior and posterior horns are intact without tear. CRUCIATE LIGAMENTS: The anterior and posterior cruciate ligaments are intact and unremarkable. COLLATERAL LIGAMENTS: The medial collateral ligament and lateral collateral ligament complex are inta ct and unremarkable. EXTENSOR MECHANISM: Visualized quadriceps and patellar tendons are intact. EFFUSION: Small size suprapatellar joint effusion. POPLITEAL CYST: No popliteal/parker cyst. TRICOMPARTMENT SPACES: Mild tricompartment joint space loss with mild spurring. CARTILAGE: Tricompartment articular cartilage is fairly well preserved BONE MARROW SIGNAL: There is heterogeneous increased T2 signal involving the inferior medial aspect o f the patella. OTHER: No additional significant abnormality is appreciated. IMPRESSION: 1. Persistent intrasubstance tear posterior horn medial meniscus, no full-thickness meniscal or ligam entous tear. No significant change from prior MRI. 2. Small suprapatellar joint effusion new from prior MRI. 3. Osseous contusion injury and/or abnormal bone marrow edema involving the medial inferior aspect of the patella. 4. Mild tricompartment degenerative changes as detailed above are new from 2018 MRI.
== END | disposition home or self-care (01) ==
LOC: RADMRIMAIN 17:28
PROVIDERS: ATTEND Orthopaedic Surgery
DX: S83.241A Other tear of medial meniscus, current injury, right knee, initial encounter (principal); M17.11 Unilateral primary osteoarthritis, right knee; M25.461 Effusion, right knee; X58.XXXA Exposure to other specified factors, initial encounter

== ENCOUNTER → 2023-01-23 | Outpatient (CLI) | payer MEDICARE, OTHER ==
--- NOTE | 2023-01-23 14:24 | P.PN ---
Subjective DATE: 01/23/2023 FOLLOW UP VISIT. Patient with obstructive sleep apnea hypopnea syndrome return to sleep center for follow-up visit. Information from previous visit have been reviewed. Patient is using PAP equipment every night for the whole night, getting PAP supplies in time. The patient does not have significant problems with the mask, PAP unit and humidification. [place] sleepiness scale is 3. I checked information from PAP unit. PAP unit pressure is 10.6 cm H2O. Usage is 100 % for more then 4 hours, average 8 hours per night. Leak is 0 l/m, which is ideal. Apnea Hypopnea Index is 0.1, which is perfect. MEDICATIONS:1. Amlodipine 10 mg once a day 2. Synthroid 100 g once a day 3. Metformin 500 mg once a day 4. Xanax as needed 5. . Percocet 6. Etodolac 400 mg twice a day During physical exam: GENERAL: A pleasant patient without any distress. VITAL SIGNS: BP 135/87, HR 74, RR 16 , weight 196.6, temperature 98.1, oxygen saturation at room air 97 % . HEENT: PERRLA, EOMI.low position of soft palate, [place] 3 . NECK: Supple. No JVD. LUNGS: Clear to percussion and to auscultation. Good air exchange. No wheezing or rhonchi. HEART: S1, S2 regular. ABDOMEN: Soft and nontender.[] EXTREMITIES: No clubbing or cyanosis. DIGITAL SALES REPRESENTATIVE: Awake, alert, and oriented x3. No focal deficit. Impressions: 1. Obstructive sleep apnea-hypopnea syndrome. Patient demonstrated great compliance with treatment, benefiting from treatment. 2. Status post right hip replacement recently. 3. Hypertension. 4. Hypothyroidism. 5. Acid reflux. 6. History of asthma. 7. Status post L4-L5 laminectomy. 8. Status post right knee arthroscopic surgery. 9. Status post adenoidectomy. Plan: 1. Continue using PAP equipment every night for the whole night. 2. To change air filter at least 1-2 times per month. 3. PAP unit should stay lower then position of the head. 4. Advised patient to remove all remaining water from humidifier canister daily and make it dry after each usage. Refill canister with fresh distilled water before each usage. 5. Sleep hygiene with regular time in bed for at least 8 hours. 6. Precautions related to driving. No driving if feel any sleepiness. 7. I will maintain prescription for PAP supplies including mask, tube, filters. 8. Follow up visit in 6 months or earlier if patient has any problems. 9. Watching weight, patient increased weight on 11 pounds since previous visit. Thank you very much for allowing me to participate in the management of your patient. Bhavin Nelson MD, PhD, FAASM. Diplomat of [place] [employer], Sleep Medicine Board by [place] [employer] Assistant Branch Manager of [facility] [place]
== END ==
LOC: 3 N SLEEP 13:56
PROVIDERS: ATTEND Internal Medicine
DX: G47.33 Obstructive sleep apnea (adult) (pediatric) (principal); E03.9 Hypothyroidism, unspecified; I10 Essential (primary) hypertension; J45.909 Unspecified asthma, uncomplicated; K21.9 Gastro-esophageal reflux disease without esophagitis; Z79.84 Long term (current) use of oral hypoglycemic drugs; Z79.890 Hormone replacement therapy; Z79.899 Other long term (current) drug therapy; Z96.641 Presence of right artificial hip joint; Z98.890 Other specified postprocedural states; Z99.89 Dependence on other enabling machines and devices; Z88.6 Allergy status to analgesic agent; Z88.8 Allergy status to other drugs, medicaments and biological substances; Z87.891 Personal history of nicotine dependence
CPT/HCPCS: 99212

== ENCOUNTER 2023-06-14 10:54 | Day surgery (SDC) | payer MEDICARE, OTHER ==
[~2023-06-14 10:54] MED LIST changes: +LIDOCAINE 1% (10MG/ML) FOR IV START INTRADERMA PRN; -LIDOCAINE 1% 20 ML VIAL (10MG/ML) FOR IV START INTRADERMA PRN
[2023-06-14] MEDS ORDERED: LACTATED RINGERS 1,000 ML IV ONE (11:10)
[2023-06-14 11:26] LABS: Glucose,Whole Blood 132 mg/dL (70-110)
[2023-06-14] MEDS ORDERED: ONDANSETRON 4 MG/2 ML VIAL ONE (11:37)
[2023-06-14] MEDS ORDERED: ONDANSETRON 4 MG/2 ML VIAL IVP ONE (11:39)
[2023-06-14 11:54] VITALS: TEMP 98.3
[2023-06-14] MEDS ORDERED: PROPOFOL 10 MG/ML 20 ML VIAL IV ONE (12:27)
--- NOTE | 2023-06-14 12:48 | P.PCN ---
Date of Procedure: 06/14/23 Procedure(s) Performed: BRIEF HISTORY: Patient is a 52-year-old pleasant white male scheduled for an elective colonoscopy as a part of screening for colon cancer. PROCEDURE PERFORMED: Colonoscopy with snare polypectomy. PREOPERATIVE DIAGNOSIS: Screening for colon cancer. IV sedation per Anesthesia. PROCEDURE: After informed consent was obtained, the patient, was brought into the endoscopy unit. IV sedation was administered by Anesthesia under continuous monitoring. Digital rectal examination was normal. Initially the Olympus CF-160 flexible video colonoscope was then inserted in the rectum, gradually advanced into the cecum without any difficulty. Careful examination was performed as the scope was gradually being withdrawn. Ileocecal valve and the appendiceal orifice were visualized and appeared normal. Prep was poor.. Mucosa of the cecum, had a 7 mm polyp that was removed by cold snare polypectomy. In the hepatic flexure there was a 6 minute a polyp removed by cold snare polypectomy. Rest of the ascending colon, transverse colon, descending colon, sigmoid colon, and rectum appeared normal. There was a 3 mm polyp removed by cold snare polypectomy. Retroflexion was performed in the rectum and a 2 internal hemorrhoids were seen. The patient tolerated the procedure well. IMPRESSION: 7 mm cecal polyp status post polypectomy 6 mm hepatic flexure polyp status post cold snare polypectomy 3 mm rectal polyp status post cold snare polypectomy Grade 2 internal hemorrhoids RECOMMENDATIONS: Findings of this examination were discussed with the patient as well as his family. He was advised to follow with the biopsy results and if the biopsy result adenoma he can have a repeat colonoscopy in 3 years..
[2023-06-14 13:34] VITALS: BP 124/85; PULSE 76; RESP 16
== END 2023-06-14 13:44 | disposition home or self-care (01) ==
LOC: ORWHC2ENDO 10:54
PROVIDERS: ATTEND Internal Medicine Gastroenterology
DX: Z12.11 Encounter for screening for malignant neoplasm of colon (principal); D12.3 Benign neoplasm of transverse colon; K64.1 Second degree hemorrhoids; I10 Essential (primary) hypertension; I25.10 Atherosclerotic heart disease of native coronary artery without angina pectoris; J45.909 Unspecified asthma, uncomplicated; G47.33 Obstructive sleep apnea (adult) (pediatric); F41.9 Anxiety disorder, unspecified; M19.90 Unspecified osteoarthritis, unspecified site; Z79.51 Long term (current) use of inhaled steroids; Z79.899 Other long term (current) drug therapy; Z88.8 Allergy status to other drugs, medicaments and biological substances; Z88.1 Allergy status to other antibiotic agents
CPT/HCPCS: 88305; 45385; J2405; J2704

== ENCOUNTER → 2024-03-11 | Outpatient (CLI) | payer MEDICARE, OTHER ==
[2024-03-11 15:42] VITALS: BP 130/85; PULSE 79; RESP 16; TEMP 98.5
--- NOTE | 2024-03-11 16:24 | P.PROGSL ---
Subjective DATE: 03/11/2024 FOLLOW UP VISIT. Patient with obstructive sleep apnea hypopnea syndrome return to sleep center for follow-up visit. Information from previous visit have been reviewed. Patient is using PAP equipment every night for the whole night, getting PAP supplies in time. The patient does not have significant problems with the mask, PAP unit and humidification. [place] sleepiness scale is 3, which is normal. I checked information from PAP unit. PAP unit pressure 10.6 cm H2O. Usage is 100% for more then 4 hours, average 8.2 hours per night. Leak is perfect 0 l/m. Apnea Hypopnea Index is also perfect 0.1. MEDICATIONS have been reviewed, please see below, patient also is on Percocet. During physical exam: GENERAL: A pleasant patient without any distress. VITAL SIGNS: Please see below, weight is 192.6 lbs. HEENT: PERRLA, EOMI.low position of soft palate, Mallapati 3. NECK: Supple. No JVD. LUNGS: Clear to percussion and to auscultation. Good air exchange. No wheezing or rhonchi. HEART: S1, S2 regular. ABDOMEN: Soft and nontender.[] EXTREMITIES: No clubbing or cyanosis. RANCH RIDER: Awake, alert, and oriented x3. No focal deficit. Impressions: 1. Obstructive sleep apnea-hypopnea syndrome. Patient demonstrated great compliance with treatment, benefiting from treatment. 2. Hypertension. 3. Hypothyroidism. 4. Status post right hip replacement. 5. Acid reflux. 6. History of asthma. 7. Status post adenoidectomy. 8. Status post L4-L5 laminectomy. 9. Status post right knee arthroscopic surgery. Plan: 1. Continue using PAP equipment every night for the whole night. 2. Sleep hygiene with regular time in bed for at least 7.5-8 hours 3. PAP unit should stay lower then position of the head. 4. Advised patient to remove all remaining water from humidifier canister daily and make it dry after each usage. Refill canister with fresh distilled water before each usage. 5. Watching weight. 6. Precautions related to driving. No driving if feel any sleepiness. 7. I will maintain prescription for PAP supplies including mask, tube, filters. 8. Follow up visit in 6 months or earlier if patient has any problems. Thank you very much for allowing me to participate in the management of your patient. Bhavin Nelson MD, PhD, FAASM. Diplomat of [employer] [employer], Sleep Medicine Board by [employer] [facility] [employer] [place] Objective - Vital Signs Vital Signs: Vital Signs Temp 98.5 F 03/11/24 15:41 Pulse 79 03/11/24 15:41 Resp 16 03/11/24 15:41 BP 130/85 03/11/24 15:41 Pulse Ox 97 03/11/24 15:41 FiO2 Intake & Output 03/10/24 03/11/24 03/11/24 18:59 06:59 18:59 Weight 87.26 kg Home Medications: Home Medications Medication Instructions Recorded Confirmed Type ALPRAZolam [Xanax] 1 mg PO DAILY PRN 11/22/15 03/11/24 History Levothyroxine Sodium [Synthroid] 100 mcg PO DAILY 11/22/15 03/11/24 History amLODIPine [Norvasc] 10 mg PO DAILY 11/22/15 03/11/24 History oxyCODONE-APAP 10-325MG [Percocet 1 tab PO QID 11/22/15 06/14/23 History 10-325 mg] Ciprofloxacin Ophth Soln [Ciloxan 1 drop BOTH EYES BID 02/28/17 06/14/23 History 0.3% Ophth Soln] Albuterol Nebulized [Ventolin 2.5 mg INHALATION RT-QID PRN 06/15/22 06/14/23 History Nebulized] Ergocalciferol [Vitamin D2 (1250 1,250 mcg PO Q30D 06/15/22 06/14/23 History Mcg = 49686 Iu)] Hydrocortisone Cream 1 applic TOPICAL HS PRN 06/15/22 06/14/23 History [Hydrocortisone 2.5% Cream] Ketoconazole 2% Cream [Nizoral 2%] 1 applic TOPICAL HS PRN 06/15/22 06/14/23 History Omeprazole [PriLOSEC] 20 mg PO DAILY 06/15/22 06/14/23 History metFORMIN HCL [Glucophage] 250 mg PO BID PRN 06/15/22 03/11/24 History Unk Multi Vitamin 1 tab PO DAILY 06/11/23 06/14/23 History
== END ==
LOC: 3 N SLEEP 15:10
PROVIDERS: ATTEND Internal Medicine
CPT/HCPCS: 99212

== ENCOUNTER → 2024-12-09 | Outpatient (CLI) | payer MEDICARE, OTHER ==
[2024-12-09 13:52] VITALS: BP 143/91; PULSE 82; RESP 16; TEMP 97.8
--- NOTE | 2024-12-09 14:33 | P.PROGSL ---
Subjective DATE: 12/09/2024 FOLLOW UP VISIT. Patient with obstructive sleep apnea hypopnea syndrome return to sleep center for follow-up visit. Information from previous visit have been reviewed. Patient is using PAP equipment every night for the whole night, getting PAP supplies in time. The patient does not have significant problems with the mask, PAP unit and humidification. [place] sleepiness scale is 2, which is perfect. I checked information from PAP unit. PAP unit pressure 10.6 cm H2O. Usage is 100% for more then 4 hours, average 7.8 hours per night. Leak is perfect 0 l/m. Apnea Hypopnea Index is also perfect 0.1. CPAP unit is old and noisy. MEDICATIONS have been reviewed, please see below. During physical exam: GENERAL: A pleasant patient without any distress. VITAL SIGNS: Please see below, weight is 184 lbs. HEENT: PERRLA, EOMI.low position of soft palate, Mallapati 3 . NECK: Supple. No JVD. LUNGS: Clear to percussion and to auscultation. Good air exchange. No wheezing or rhonchi. HEART: S1, S2 regular. ABDOMEN: Soft and nontender.[] EXTREMITIES: No clubbing or cyanosis. COMPLAINT INSPECTOR: Awake, alert, and oriented x3. No focal deficit. Impressions: 1. Obstructive sleep apnea-hypopnea syndrome. Patient demonstrated great compliance with treatment, benefiting from treatment. CPAP unit is old and noisy. 2. Hypertension. 3. Hypothyroidism. 4. Status post right hip replacement. 5. Acid reflux. 6. History of asthma. 7. Status post adenoidectomy. 8. Status post right knee arthroscopic surgery. 9. Status post L4-L5 laminectomy. Plan: 1. Continue using PAP equipment every night for the whole night. Prescription to replace CPAP unit. 2. Sleep hygiene with regular time in bed for at least 7.5-8 hours 3. PAP unit should stay lower then position of the head. 4. Advised patient to remove all remaining water from humidifier canister daily and make it dry after each usage. Refill canister with fresh distilled water before each usage. 5. Watching weight. 6. Precautions related to driving. No driving if feel any sleepiness. 7. I will maintain prescription for PAP supplies including mask, tube, filters. 8. Follow up visit in 1-3 months after patient will get new CPAP unit to evaluate clinical response on treatment, compliance with treatment and [place] adjustments. Thank you very much for allowing me to participate in the management of your patient. Bhavin Nelson MD, PhD, FAASM. Diplomat of [place] [employer], Sleep Medicine Board by [place] [employer] [facility] [place] Objective - Vital Signs Vital Signs: Vital Signs Temp 97.8 F 12/09/24 13:50 Pulse 82 12/09/24 13:50 Resp 16 12/09/24 13:50 BP 143/91 12/09/24 13:50 Pulse Ox 99 12/09/24 13:50 FiO2 Intake & Output 12/08/24 12/09/24 12/09/24 18:59 06:59 18:59 Weight 83.461 kg Home Medications: Home Medications Medication Instructions Recorded Confirmed Type ALPRAZolam [Xanax] 1 mg PO DAILY PRN 11/22/15 12/09/24 History Levothyroxine Sodium [Synthroid] 100 mcg PO DAILY 11/22/15 12/09/24 History amLODIPine [Norvasc] 10 mg PO DAILY 11/22/15 12/09/24 History oxyCODONE-APAP 10-325MG [Percocet 1 tab PO QID 11/22/15 12/09/24 History 10-325 mg] Ciprofloxacin Ophth Soln [Ciloxan 1 drop BOTH EYES BID 02/28/17 06/14/23 History 0.3% Ophth Soln] Albuterol Nebulized [Ventolin 2.5 mg INHALATION RT-QID PRN 06/15/22 06/14/23 History Nebulized] Ergocalciferol [Vitamin D2 (1250 1,250 mcg PO Q30D 06/15/22 06/14/23 History Mcg = 86975 Iu)] Hydrocortisone Cream 1 applic TOPICAL HS PRN 06/15/22 06/14/23 History [Hydrocortisone 2.5% Cream] Ketoconazole 2% Cream [Nizoral 2%] 1 applic TOPICAL HS PRN 06/15/22 06/14/23 History Omeprazole [PriLOSEC] 20 mg PO DAILY 06/15/22 06/14/23 History metFORMIN HCL [Glucophage] 250 mg PO BID PRN 06/15/22 03/11/24 History Unk Multi Vitamin 1 tab PO DAILY 06/11/23 06/14/23 History Dulaglutide [Trulicity] 1.5 mg SQ WEEKLY 12/09/24 12/09/24 History
== END ==
LOC: 3 N SLEEP 13:27
PROVIDERS: ATTEND Internal Medicine
DX: G47.33 Obstructive sleep apnea (adult) (pediatric) (principal); I10 Essential (primary) hypertension; E03.9 Hypothyroidism, unspecified; K21.9 Gastro-esophageal reflux disease without esophagitis; J45.909 Unspecified asthma, uncomplicated; F12.90 Cannabis use, unspecified, uncomplicated; Z96.651 Presence of right artificial knee joint; Z98.890 Other specified postprocedural states; Z99.89 Dependence on other enabling machines and devices; Z87.891 Personal history of nicotine dependence; Z88.8 Allergy status to other drugs, medicaments and biological substances
CPT/HCPCS: 99212